=== PATIENT | female | born 2000 | race Caucasian/White ===

== ENCOUNTER 2022-07-07 19:25 | Emergency (ER) | payer MEDICAID ==
[~2022-07-07] VITALS: Ht 149.9 cm; Wt 49.9 kg
[2022-07-07 20:50] VITALS: BP 126/70
--- NOTE | 2022-07-07 20:56 | NUR ---
TO LOBBY FOLLOWING TRIAGE. NO UA OBTAINED
--- NOTE | 2022-07-07 22:39 | NUR ---
CALLED FOR MD SHERIFF, NO ANSWER
--- NOTE | 2022-07-07 22:55 | NUR ---
CALLED FOR MD SHERIFF, NO ANSWER, LWBS
== END 2022-07-07 22:55 | disposition left against medical advice (07) ==
LOC: MED 19:25
DX: R10.9 Unspecified abdominal pain (principal); Z53.21 Procedure and treatment not carried out due to patient leaving prior to being seen by health care provider